=== PATIENT | female | born 1990 | race Caucasian/White ===

== ENCOUNTER 2024-02-15 15:44 | Outpatient (CLI) | payer BC, SELFPAY ==
--- NOTE | ~2024-02-15 | US_ITS ---
EXAMINATION: US thyroid DATE: 02/15/2024 16:08 INDICATION: Lesion of neck. TECHNIQUE: Multiple ultrasound images of the thyroid were obtained. COMPARISON: None. FINDINGS: The right thyroid lobe measures 5.2 x 1.6 x 1.3 cm. The left thyroid lobe measures 4.2 x 1.4 x 1.4 c m. There is normal echotexture and echogenicity throughout the thyroid gland. No discrete nodules id entified. Normal vascular flow is present. IMPRESSION: 1. Normal thyroid. Reviewed, dictated and finalized at location A. IMPRESSION: 1. Normal thyroid.
== END 2024-02-15 15:45 ==
LOC: MICIMG 15:44
PROVIDERS: PCP Internal Medicine; Visit Provider Internal Medicine
DX: L98.9 Disorder of the skin and subcutaneous tissue, unspecified (principal)
CPT/HCPCS: 76536

== ENCOUNTER 2024-08-17 07:46 | Outpatient (CLI) | payer BC, SELFPAY ==
--- NOTE | 2024-08-17 07:51 | ECG_ITS ---
Test Date: 2024-08-17 08:08:30 Measurements Intervals [place] Rate: 64 P: 26 AR: 162 QRS: 10 QRSD: 97 T: -15 QT: 393 QTc: 407 Interpretive Statements SINUS RHYTHM MODERATE VOLTAGE CRITERIA FOR LVH, CONSIDER NORMAL VARIANT [MEETS CRITERIA IN ONE OF: R(aVL), S(V1), R(V5), R(V5/V6)+S(V1)] MODERATE T-WAVE ABNORMALITY, CONSIDER ANTEROLATERAL ISCHEMIA [-0.1+ mV T WAVE IN V3-V6] No previous ECG available for comparison Electronically Signed On 08-20-2024 15:00:22 EMPLOYEE TRAINING SPECIALIST by Kwaku Lenz M.D.
== END 2024-08-17 07:47 | disposition home or self-care (01) ==
LOC: ANHSURGERY 07:50
PROVIDERS: PCP Internal Medicine; Visit Provider Obstetrics & Gynecology
DX: I10 Essential (primary) hypertension (principal); Z01.818 Encounter for other preprocedural examination; R94.31 Abnormal electrocardiogram [ECG] [EKG]
CPT/HCPCS: 93005

== ENCOUNTER 2024-08-20 00:35 | Day surgery (SDC) | payer BC, SELFPAY ==
[2024-08-06 14:47] VITALS: BMI 49.0
--- NOTE | 2024-08-06 15:15 | PC.NURSE ---
Report to the Outpatient Waiting Room, entrance under the green pavilion located off [facility], at time _0600AM on date _Tue08/20/24 . Planned Procedure Time: __0730AM .? Time changes happen often and if your time is changed the preop area will call you the afternoon before. - You and your visitor will be asked to self-screen and do not enter if you have any COVID symptoms. Please call surgeon if you need to reschedule. - A mask is optional within the hospital at this time. Patients may have clear liquids (water, carbonated beverages, clear teas, apple juice) until 3 hours prior to surgery with a maximum of 20 ounces. - No food from midnight until time of surgery and no smoking. This includes no chewing gum, candy or mints. Take only the following medications with a SIP of water on the morning of surgery: _AMLODIPINE DO NOT STOP ANY OF YOUR OTHER PRESCRIPTION MEDICATIONS PRIOR TO SURGERY EXCEPT THE FOLLOWING Medications to discontinue per physician ___TERZEPATIDE---HOLD FOR 10 DAYS PRIOR OR SURGERY Date to take last dose Please no make-up, nail luxembourger, hairspray, perfume, deodorant, or body powder the day of surgery.? No jewelry (including any body piercings) or valuables the day of surgery, leave them at home.? Please take a shower or bath the night before, or the morning of, surgery with an antibacterial soap.? Wear comfortable, loose fitting clothing.? - Jewelry must be removed prior to entering the operating room.? Rings and piercings that are not removed may be cut off. - The hospital will not accept responsibility for valuables.? - Please leave all valuables, including medications, at home the day of surgery. If you are going home after surgery, a licensed hazmat truck driver must drive you home.? - NO public transportation without another adult if you receive anesthesia. - We recommend that an adult stay with you for 24 hours following discharge. - We also recommend that you do not drive, make important decision, drink alcoholic beverages, or take any drugs that were not prescribed by your health care provider for at least 24 hours after your discharge time. Follow any additional instructions given to you from your surgeon. Telephone instructions given to _STANTON and asked if any additional questions and then verbalized understanding. Patient advised to call surgeon office or pre surgery nurse liaison [phone] if any additional questions.
--- NOTE | 2024-08-19 13:48 | PM.IMHP ---
H&P: HPI History of Present Illness Date/Time: 08/19/24 13:48 Chief Complaint: menorrhagia/ request for sterilization Narrative: Jasmin is a 33yo P0010, LMP 07/2024 who presents for surgical intervention for AUB/sterilization. She reported that her cycles were very irregular; sometimes super heavy and painful with heavy clots and a lot of cramping; does not want to leave her house. Others are like 5 days of light bleeding, no clotting or cramping. Since being on compounded trezepitide/weight loss program; she reports her cycles have been more regular; still heavy and painful. She had normal TSH and thyroid US in 2022. 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 Did blood work at [facility] and they did not run testosterone levels. She is sexually active; using condoms. She is wanting to proceed with scheduling tubal. Review of Systems Constitutional: Constitutional: Denies chills, Denies fever(s) and Denies headache(s) Eyes: Eyes: Denies change in vision ENT: Denies dizziness and Denies headache(s) Cardiovascular: Cardiovascular: Denies chest pain and Denies dyspnea Respiratory: Respiratory: Denies cough and Denies dyspnea Gastrointestinal: Gastrointestinal: Denies abdominal pain and Denies change in stool character Genitourinary: Genitourinary: Denies abnormal menses, Reports menorrhagia, Denies pelvic pain, Denies vaginal discharge, Denies vaginal odor and Denies vaginal pruritus Neurologic: Denies dizziness and Denies headache(s) Psychiatric: Psychiatric: Denies anxiety and Denies depression PMFSH Past Medical History Medical History Encounter to establish care Gallbladder disorder Hyperlipidemia Hypertension IBS (irritable bowel syndrome) Morbid obesity with BMI of 50.0-59.9, adult Screening for diabetes mellitus Seasonal allergies Vitamin D deficiency Surgical History Surgical History H/O gynecological procedure Family History Family History Father Hypertension Mother Hypertension Depression Heart disease Thyroid disease Grandparent Alcoholism Cancer Diabetes mellitus Hypertension Depression Heart disease Grandparent Alcoholism Cancer Hypertension Social History Social History (Reviewed 06/13/24 @ 09:59 by CIRA Lui Smoking status: Never smoker Alcohol intake: current Substance use: never Substance use type: does not use Lack of Transportation: No Current Housing: Decline to Answer Concerned About Future Housing: Decline to Answer Difficulty Paying Gas/Electric Bills: Decline to Answer Difficulty Paying for Meds: Decline to Answer Currently Unemployed: Decline to Answer Education: Decline to Answer Difficulty w/ Childcare or Family Care: Decline to Answer Living arrangements: with family Occupation/Education: occupation Gender identity (if verbalized by the patient): Female Sexual Orientation (if Verbalized by the Patient): Straight or Heterosexual Spiritual care concerns: No Meds Home Medications and Allergies Home Medications ?Medication ?Instructions ?Recorded ?Confirmed ?Type amlodipine 5 mg tablet 5 mg PO DAILY #90 tabs 06/17/23 08/06/24 Rx amlodipine 2.5 mg tablet 2.5 mg PO DAILY 04/23/24 08/06/24 History trezepitide 10 mg subcut WEEKLY WEIGHT LOSS 04/23/24 08/06/24 History Allergies Allergy/AdvReac Type Severity Reaction Status Date / Time No Known Allergies Allergy Mild Verified 06/13/24 09:59 Exam Const: General: cooperative, comfortable, no acute distress and obese Orientation/consciousness: patient oriented x3 Resp: Effort & Inspection: normal respiratory effort Cardio: Rate: regular rate GI: Inspection: normal to inspection GI Palp: No abdominal tenderness and Yes Soft to palpation : Other: deferred to OR Skin: General skin exam: normal color Neuro: General: patient oriented x3 Extrem: General: normal to inspection Psych: Appearance: grossly normal Affect: normal affect Attitude: cooperative Assessment and Plan Assessment and plan (1) Menorrhagia: Qualifiers: Menorrhagia type: with regular cycle Qualified Code(s): N92.0 - Excessive and frequent menstruation with regular cycle Code(s): N92.0 - Excessive and frequent menstruation with regular cycle Status: Acute (2) Request for sterilization: Code(s): Z30.2 - Encounter for sterilization Status: Acute Plan - Pt desires to schedule laparoscopic bilateral salpingectomy with hysteroscopy with D&C - Risks and benefits discussed in detail including but not limited to pain, bleeding, injury to nearby structures including bowels, bladder, ovaries, blood vessels, nerves. Discussed that this is permanent sterilization. She understands of the other types of contraception including vasectomy but desires to proceed with complete removal of her fallopian tubes.
[2024-08-20] VITALS (9 sets, daily range): BP systolic 123–170; BP diastolic 66–90; PULSE 65–76; RESP 14–20; TEMP 36–37.1; O2SAT 92–100
[2024-08-20] MEDS: ACETAMINOPHEN 500 MG TABLET 1000 MG PO (06:35)
[2024-08-20] MEDS: KETOROLAC 15 MG/ML VIAL (*BKC) IV PUSH (06:35)
--- NOTE | 2024-08-20 07:02 | WPDHPUPDATE1 ---
History and Physical Update Update Date/Time: 08/20/24 07:02 History and Physical has been reviewed, including an updated exam of the patient. There are NO changes in the patient's condition. Risks, benefits, and alternatives have been discussed and questions answered. Patient agrees to proceed with laparoscopic bilateral salpingectomy with hysteroscopy with D&C.
--- NOTE | 2024-08-20 07:06 | WPDANESEPPF ---
Anes - Initial Pre Proc Eval Procedure: Operation Date: 08/20/24 07:30 Proposed Procedures p Hysteroscopy Dilation and Curettage, - Hellen Delvalle MD s Bilateral Laparoscopic Salpingectomy - Hellen Delvalle MD Date/Time: 08/20/24 07:06 Surgeon: Hellen Delvalle MD Pre Op Diagnosis: menorrhagia, desires sterilization Patient Data Age: 33 Gender: F Height: 1.63 m Weight: 128.2 kg Last Vital Signs Temp 37.1 C 08/20/24 06:35 Pulse 74 08/20/24 06:35 Resp 14 08/20/24 06:35 BP 140/84 08/20/24 06:35 Pulse Ox 99 08/20/24 06:35 O2 Del Method Room Air 08/20/24 06:35 Allergies Allergy/AdvReac Type Severity Reaction Status Date / Time No Known Allergies Allergy Mild Verified 08/20/24 07:04 Home Medications ?Medication ?Instructions ?Recorded ?Confirmed ?Type amlodipine 5 mg tablet 5 mg PO DAILY #90 tabs 06/17/23 08/06/24 Rx amlodipine 2.5 mg tablet 2.5 mg PO DAILY 04/23/24 08/06/24 History trezepitide 10 mg subcut WEEKLY WEIGHT LOSS 04/23/24 08/06/24 History Patient hx anesthesia problems: none Family hx anesthesia problems: none Results Review: All pre-operative results and documents have been reviewed as part of the pre-operative evaluation. [facility] Past Medical History Medical History Vitamin D deficiency Encounter to establish care Hypertension Hyperlipidemia Morbid obesity with BMI of 50.0-59.9, adult Screening for diabetes mellitus IBS (irritable bowel syndrome) Gallbladder disorder Seasonal allergies Surgical History Surgical History H/O gynecological procedure Family History Family History Father Hypertension Mother Hypertension Depression Heart disease Thyroid disease Grandparent Alcoholism Cancer Diabetes mellitus Hypertension Depression Heart disease Grandparent Alcoholism Cancer Hypertension Social History Social History Smoking status: Never smoker Alcohol intake: current Substance use: never Substance use type: does not use Lack of Transportation: No Current Housing: Decline to Answer Concerned About Future Housing: Decline to Answer Difficulty Paying Gas/Electric Bills: Decline to Answer Difficulty Paying for Meds: Decline to Answer Currently Unemployed: Decline to Answer Education: Decline to Answer Difficulty w/ Childcare or Family Care: Decline to Answer Living arrangements: with family Occupation/Education: occupation Gender identity (if verbalized by the patient): Female Sexual Orientation (if Verbalized by the Patient): Straight or Heterosexual Spiritual care concerns: No Anes - Eval Final PreProcedure Day of Procedure 08/20/24 07:06 Patient weight: morbidly obese Heart: regular rate and rhythm Lungs: clear to auscultation Airway: Mallampati scale class II Neurological: alert and oriented Last oral intake: >/= 8 hours ASA classification: III Emergent: no Anesthetic plan: proceed Anesthesia type and monitoring: general ETT and standard monitoring Results Review: All pre-operative results and documents have been reviewed as part of the pre-operative evaluation. Informed Consent: The patient's anesthetic plan and its attendant risks and benefits were discussed with the patient/family/POA. Questions were solicited and answers provided to the satisfaction of the patient/family/POA.
[2024-08-20 07:08] LABS: BEDSIDEPREGUCG Negative (Negative)
[2024-08-20] MEDS: BUPIVACAINE/EPINEPHRINE 0.5% 30 ML VIAL INFILTRATE (07:47)
--- NOTE | 2024-08-20 08:27 | SUR.PREOP ---
EKG WAS NOT READ YET AT TIME OF PROCEDURE. OK TO PROCEED PER ANESTESIA.
--- NOTE | 2024-08-20 08:35 | P.OP_ITS ---
Procedure Note - Detailed Date of Procedure 08/20/24 Pre-op Diagnosis menorrhagia, desires sterilization Post-op Diagnosis Same Procedure Performed Laparoscopic bilateral salpingectomy, hysteroscopy with D&C Surgeon Hellen Delvalle MD Senior Accountant C[employer] [facility] Anesthesia General and Local (20cc of 0.5% marcaine w/ epi) Findings Uterus sounded to 9.5cm. Normal uterus and normal ovaries bilaterally. Normal left fallopian tube; right fallopian tube with small paratubal cyst. Good hemostasis at end of case. Diffusely thickened endometrium throughout; polyp arising from fundus. Bilateral tubal ostia visualized. Good hemostasis at end of case. Fluid deficit: 220cc Description of Procedure Jasmin was taken to the operating room where she was placed under general endotracheal anesthesia without complications. She was then prepped and draped in the usual sterile fashion in the dorsal lithotomy position with her legs in low Jamie stirrups and her arms tucked at her side with a strap over her chest. A time-out was performed and no preoperative antibiotics were indicated. My attention was turned down below where her bladder was drained via straight catheterization. A bivalve speculum was then placed within the vagina where the cervix was easily identified. The anterior lip of the cervix was grasped with a single-tooth tenaculum, the uterus was sounded, the cervix was serially dilated, and a diagnostic uterine manipulator was placed without complications. My gloves were changed and my attention was turned to her abdomen. An umbilical incision was made, and a 5 mm trocar was placed under direct visualization without complications. Once intra-abdominal placement was confirmed the abdomen was insufflated with carbon dioxide gas. She was then placed in Trendelenburg and two additional 5 mm ports were placed in the left and right lower quadrants under direct visualization without complications. The above findings were noted. The left fallopian tube was then elevated and the mesosalpinx was serially clamped, coagulated, transected using the LigaSure device until the proximal end of the fallopian tube was reached. The proximal end of the fallopian tube was cross clamped, coagulated and transected. The tube was then removed from the abdomen. The same procedure was then performed on the right side without any complications. Good hemostasis was noted. All instruments were removed from the abdomen. The insufflation was released and the trocars were removed. The 3 laparoscopic incision sites were reapproximated using 4-0 Monocryl and covered with Dermabond. The incisions were then infiltrated using 0.5% Marcaine with epinephrine. The uterine manipulator was removed. A bivalve speculum was placed within the vagina where the cervix was easily identified. The anterior lip of the cervix was grasped with a single-tooth tenaculum. The cervix was then serially dilated to allow for the hysteroscope. The hysteroscope was advanced into the uterine cavity with the above findings noted. A curettage was then performed until a good uterine cry was felt throughout the uterus. Good hemostasis was noted. All instruments were removed from the vagina. Sponge, lap, instrument, and needle counts were correct at the end of the procedure. Patient was awoken from anesthesia and taken to recovery with plans of same-day discharge home. Estimated Blood Loss 10 IV Fluids 1,300 Urine Output 150 Pathology Yes (left and right fallopian tubes, endometrial curetting's ) Complications No immediate complications Condition Stable Disposition Same day [facility] Billing Surgery - Charge Forward: Surgery Billing
[2024-08-20] MEDS: LACTATED RINGERS 1,000 ML 30 ML IV CONT ×2 (08:38)
[2024-08-20] MEDS: fentaNYL CITRATE INJ (*CRX) 100 MCG/2 ML VIAL 25 MCG IV PUSH ×4 (08:47→09:18)
[2024-08-20] MEDS: oxyCODONE HCL (*CRX) 5 MG TAB IR PO (10:00)
== END 2024-08-20 10:37 | disposition home or self-care (01) ==
PROVIDERS: PCP Internal Medicine; Visit Provider Obstetrics & Gynecology
PROC: 0U5B8ZZ Destruction of Endometrium, Via Natural or Artificial Opening Endoscopic (ICD-10-PCS; CPT 58563; principal; 2024-08-20 07:30)
PROC: (CPT 49320; 2024-08-20 07:30)
DX: Z30.2 Encounter for sterilization (principal); N83.8 Other noninflammatory disorders of ovary, fallopian tube and broad ligament; R93.89 Abnormal findings on diagnostic imaging of other specified body structures; E78.5 Hyperlipidemia, unspecified; I10 Essential (primary) hypertension; K58.9 Irritable bowel syndrome, unspecified; E55.9 Vitamin D deficiency, unspecified; K82.9 Disease of gallbladder, unspecified; E66.01 Morbid (severe) obesity due to excess calories; Z68.42 Body mass index [BMI] 45.0-49.9, adult; Z80.9 Family history of malignant neoplasm, unspecified; Z82.49 Family history of ischemic heart disease and other diseases of the circulatory system
CPT/HCPCS: 58558; 58661; 88302; 88305; A9270; J1100; J1885; J2003; J2250; J2405; J2704; J3010; J7120